=== PATIENT | female | born 1975 | race Two or more races ===

== ENCOUNTER 2020-08-14 10:51 | Outpatient (REF) | payer OTHER, SELFPAY ==
--- NOTE | ~2020-08-14 | MM_ITS ---
EXAMINATION: MM SCREENING DIGITAL BREAST TOMOSYNTHESIS, BILATERAL CLINICAL INFORMATION: Screening. Asymptomatic. The lifetime risk of breast cancer based on the Tyrer-Cuzick Model is 12%. COMPARISON: Outside mammography: 01/21/2019, 01/16/2019 ([place]). TECHNIQUE: Digital breast tomosynthesis is performed in both the craniocaudal and mediolateral oblique views along with computer-aided detection (CAD). Synthesized 2D images are generated from the tomosynthesis. FINDINGS: The breasts are heterogeneously dense, which may obscure small masses (ACR BI-RADS breast composition Category c). There are no significant masses, abnormal calcifications, or other abnormalities. Parenchymal pattern is similar to prior studies. No developing density. The axilla and skin contours are unremarkable. MM/MM tomosynthesis screening BI IMPRESSION: No mammographic evidence of malignancy. ASSESSMENT: BI-RADS 1: Negative RECOMMENDATION: Routine annual mammography screening. This patient's information was entered into a reminder system with a target due date for their next mammogram.
== END 2020-08-14 10:52 | disposition home or self-care (01) ==
LOC: HO.MAMMO 10:51
PROVIDERS: Visit Provider Internal Medicine
DX: Z12.31 Encounter for screening mammogram for malignant neoplasm of breast (principal)
CPT/HCPCS: 77063; 77067

== ENCOUNTER 2020-10-06 07:26 | Outpatient (REF) | payer OTHER, SELFPAY ==
--- NOTE | ~2020-10-06 | MR_ITS ---
EXAMINATION: MR BRAIN WITHOUT AND WITH CONTRAST CLINICAL INFORMATION: Hyperprolactinemia. COMPARISON: There are no prior studies available for comparison. TECHNIQUE: Multiplanar, multisequence MRI of the brain was obtained before and after the intravenous administration of 3.5 mL Gadavist. FINDINGS: No discrete abnormal focus of decreased differential enhancement is seen within the pituitary gland. The infundibulum is midline. The cavernous sinuses opacify symmetrically. The internal carotid artery flow-voids are maintained. The optic chiasm is normal. No suprasellar soft tissue abnormality is seen. The sella turcica is normal. No diffusion abnormalities are identified to suggest an acute or subacute infarct. No mass effect or midline shift is seen. The ventricles are normal in size. Brain parenchymal signal is normal. No extra-axial fluid collections are seen. The brainstem and cerebellum are normal. On postcontrast imaging, there is no abnormal parenchymal or leptomeningeal enhancement. No pathologic magnetic susceptibility artifact is identified on the gradient refocused acquisition. The craniovertebral junction, marrow signal, and midline structures are normal. The major intracranial flow-voids at the level of the cahto of [place] are preserved. The dural venous sinus flow-voids are maintained. The mastoid air cells are well-aerated. There is trace mucoperiosteal thickening in the inferior left maxillary sinus. MR/MR head/brain wo/w con IMPRESSION: 1. The pituitary region appears normal, and no discrete abnormal foci of decreased differential enhancement are demonstrated. 2. There are no acute bleeds or infarcts. There are no masses or areas of abnormal enhancement.
== END 2020-10-06 07:27 | disposition home or self-care (01) ==
LOC: HO.MRI 07:26
PROVIDERS: PCP Internal Medicine; Visit Provider Obstetrics & Gynecology Reproductive Endocrinology
DX: E22.1 Hyperprolactinemia (principal)
CPT/HCPCS: 70553; A9585

== ENCOUNTER 2020-12-08 14:12 | Outpatient (REF) | payer OTHER, SELFPAY ==
--- NOTE | ~2020-12-08 | XR_ITS ---
EXAMINATION: XR SHOULDER, RIGHT CLINICAL INFORMATION: Right shoulder pain. COMPARISON: None TECHNIQUE: AP external rotation, Grashey, scapular Y, and axillary views of the right shoulder. FINDINGS: No acute fracture or dislocation. No joint space narrowing or marginal osteophytes. No osseous erosion. Calcification adjacent to the greater tuberosity measuring 0.6 cm, consistent with distal supraspinatus calcific tendinitis. XR/XR shoulder RT min 2V IMPRESSION: Distal supraspinatus calcific tendinitis.
== END 2020-12-08 14:13 | disposition home or self-care (01) ==
LOC: HO.XRAY 14:12
PROVIDERS: PCP Internal Medicine; Visit Provider Internal Medicine
DX: M25.511 Pain in right shoulder (principal)
CPT/HCPCS: 73030

== ENCOUNTER 2020-12-12 09:14 | Outpatient (REF) | payer OTHER, SELFPAY ==
[2020-12-12 09:39] LABS: MANUAL DIFF FLAG NO
[2020-12-12 09:42] LABS: Basophils Percent Auto 0.8 % (0-2); Eosinophils Absolute Auto 0.3 X10*3/uL (0.0-0.4); Eosinophils Percent Auto 5.1 % (0-4); Hematocrit 41.2 % (37-47); Hemoglobin 13.7 g/dl (12.0-16.0); Imm Gran Abs Auto 0.01 X10*3/uL (0.00-0.03); Imm Gran Pct Auto 0.2 % (0.0-0.4); Lymphocytes Absolute Auto 1.3 X10*3/uL (1.2-4.9); Lymphocytes Percent Auto 25.9 % (20-40); Mean Corpuscular HGB Conc 33.3 g/dl (31.0-35.0); Mean Corpuscular Hemoglobin 31.4 pg (27.0-33.0); Mean Corpuscular Volume 94.5 fL (80-98); Mean Platelet Volume 9.6 fL (9.4-12.3); Monocytes Absolute Auto 0.4 X10*3/uL (0.1-1.2); Monocytes Percent Auto 6.8 % (2-11); Neutrophils Absolute Auto 3.1 X10*3/uL (2.0-8.3); Neutrophils Percent Auto 61.2 % (45-73); Platelet Count 311 X10*3/uL (160-400); Red Blood Count 4.36 X10*6/uL (4.20-5.50); Red Cell Distribution Width 12.3 % (11.0-16.0); White Blood Count 5.1 X10*3/uL (4.8-10.8)
[2020-12-12 10:15] LABS: Alanine Aminotransferase 9 U/L (0-31); Albumin Level 4.3 g/dL (3.5-5.0); Alkaline Phosphatase 87 U/L (39-117); Anion Gap 10 (12-20); Aspartate Amino Transferase 12 U/L (5-31); Bilirubin Total 0.7 mg/dL (0.0-1.0); Blood Urea Nitrogen 9 mg/dL (9-16); Calcium 9.3 mg/dL (8.4-10.2); Carbon Dioxide 29 mmol/L (22-29); Chloride 104 mmol/L (96-108); Cholesterol 180 mg/dL; Estimated Glomerular Filt Rate > 60; Glucose Fasting 95 mg/dL (60-99); HDL Cholesterol 52 mg/dL; LDL Cholesterol Calculated 121 mg/dl; Potassium 3.8 mmol/L (3.3-5.1); Sodium 139 mmol/L (135-145); Total Protein 7.6 g/dL (6.5-8.0); Triglycerides 37 mg/dL
[2020-12-17 12:41] LABS: Vitamin D 25-OH, D2 <4 ng/mL; Vitamin D 25-OH, D3 44 ng/mL; Vitamin D 25-OH, Total 44 ng/mL (30-100)
== END 2020-12-12 09:15 | disposition home or self-care (01) ==
LOC: HO.LAB 09:14
PROVIDERS: PCP Internal Medicine; Visit Provider Internal Medicine
DX: D64.9 Anemia, unspecified (principal); J45.909 Unspecified asthma, uncomplicated; E78.5 Hyperlipidemia, unspecified; E55.9 Vitamin D deficiency, unspecified
CPT/HCPCS: 36415; 80053; 80061; 82306; 85025

== ENCOUNTER 2021-02-02 07:00 | Outpatient (RCR) | payer OTHER, SELFPAY ==
--- NOTE | 2020-12-30 10:34 | MHC.PT.EP ---
[facility] [place] Office [place] Office [place] Office [address] Marquez Ayala [address] [phone] F: [phone] F: [phone] F: [phone] F: [phone] Physical Therapy Plan of Care Date of Evaluation: Date of Surgery: none Diagnosis: right shoulder pain Assessment: The patient arrived reporting neck and shoulder pain, decreased ROM, and decreased strength. Her current work requires increased computer time and increased sitting. Pt exhibits rounded forward head posture during demonstration of work space. Pt will benefit from posture education, sleeping and sitting posture, cervical Apryl exercises and symptom management. She is a good candidate for skilled PT. Frequency and Duration: The patient will be seen 2x/week x 4 weeks. Short Term Goals: 1.Pt to able to demonstrate proper sitting posture with the use of a lumbar roll to decrease aggravating factors. 2.Pt to be able to demonstrate proper posture for common leisure activities such as phone/tablet use. 3.For the patient to demonstrate proper upright sitting posture with use of the lumbar roll to improve compliance and carryover. Sweatband Flanger Goals: 1. Pt to be able to return to normal PLOF without limiting pain. 2. Pt to be able to return to overhead reaching without pain or limitation. 3. Pt to be able to manage her pain with selected exercise and stretching regime. Treatment Plan: Modalities to reduce pain, spasms and effusion. Manual therapy to restore motion and function. Therapeutic exercise to improve strength and flexibility. Neuromuscular re-education for posture and balance. Therapeutic activities to return to functional activities of daily living. Electronically signed by: Mariajose Canela PT DPT Please sign and return to therapist. Thank you for your referral.
== END 2021-02-02 14:24 | disposition home or self-care (01) ==
LOC: HO.PT 07:00
PROVIDERS: PCP Internal Medicine; Visit Provider Internal Medicine
DX: M25.511 Pain in right shoulder (principal)
CPT/HCPCS: 97110; 97112; 97161; 97530

== ENCOUNTER 2022-08-19 09:42 | Outpatient (REF) | payer OTHER, SELFPAY ==
--- NOTE | ~2022-08-19 | MM_ITS ---
EXAMINATION: MM SCREENING DIGITAL BREAST TOMOSYNTHESIS, BILATERAL CLINICAL INFORMATION: Screening. Asymptomatic. The lifetime risk of breast cancer based on the Tyrer-Cuzick Model is 14%. COMPARISON: Mammography: 08/14/2020; outside mammography 01/21/2019, 01/16/2019 ([place]); left breast ultrasound 01/21/2019 ([place]). TECHNIQUE: Digital breast tomosynthesis is performed in both the craniocaudal and mediolateral oblique views along with computer-aided detection (CAD). Synthesized 2D images are generated from the tomosynthesis. FINDINGS: The breasts are heterogeneously dense, which may obscure small masses (ACR BI-RADS breast composition Category c). Parenchymal pattern is similar to prior studies and there is no developing density or architectural abnormality. There are no significant masses, abnormal calcifications, or other abnormalities. The axilla and skin contours are unremarkable. No significant changes from prior exams. MM/MM tomosynthesis screening BI IMPRESSION: No mammographic evidence of malignancy. ASSESSMENT: BI-RADS 1: Negative RECOMMENDATION: Routine annual mammography screening. This patient's information was entered into a reminder system with a target due date for their next mammogram.
== END 2022-08-19 09:43 | disposition home or self-care (01) ==
LOC: HO.MAMMO 09:42
PROVIDERS: PCP Internal Medicine; Visit Provider Internal Medicine
DX: Z12.31 Encounter for screening mammogram for malignant neoplasm of breast (principal)
CPT/HCPCS: 77063; 77067

== ENCOUNTER → 2022-10-31 11:08 | Outpatient (BNVA) | payer OTHER, SELFPAY | PROVIDERS: PCP Internal Medicine; Visit Provider Internal Medicine ==

== ENCOUNTER 2022-11-17 08:41 | Outpatient (REF) | payer OTHER, SELFPAY ==
[2022-11-17 10:28] LABS: Alanine Aminotransferase 8 U/L (0-31); Albumin Level 4.2 g/dL (3.5-5.0); Alkaline Phosphatase 84 U/L (39-117); Anion Gap 11 (12-20); Aspartate Amino Transferase 14 U/L (5-31); Bilirubin Direct 0.2 mg/dL (0.0-0.5); Bilirubin Total 0.7 mg/dL (0.0-1.0); Blood Urea Nitrogen 12 mg/dL (9-16); Calcium 9.2 mg/dL (8.4-10.2); Carbon Dioxide 28 mmol/L (22-29); Chloride 105 mmol/L (96-108); Cholesterol 200 mg/dL (<200); Estimated Glomerular Filt Rate > 60; Glucose Fasting 90 mg/dL (60-99); HDL Cholesterol 56 mg/dL (>40); LDL Cholesterol Calculated 134 mg/dL (<100); Potassium 3.5 mmol/L (3.3-5.1); Sodium 140 mmol/L (135-145); Total Protein 7.5 g/dL (6.5-8.0); Triglycerides 52 mg/dL (<150)
[2022-11-17 10:51] LABS: Vitamin D 25-OH Total 38.7 ng/mL (>30)
[2022-11-17 10:54] LABS: TSH reflex Free T4 2.06 uIU/mL (0.32-4.0)
[2022-11-22 13:48] LABS: Immunoglobulin A 242 mg/dL (47-310)
[2022-11-24 14:08] LABS: Transglutaminase IgA <1.0 U/mL
== END 2022-11-17 08:42 | disposition home or self-care (01) ==
LOC: HO.LAB 08:41
PROVIDERS: Internal Medicine; PCP Internal Medicine; Visit Provider Internal Medicine
DX: Z00.00 Encounter for general adult medical examination without abnormal findings (principal); R10.9 Unspecified abdominal pain; E55.9 Vitamin D deficiency, unspecified; E78.5 Hyperlipidemia, unspecified
CPT/HCPCS: 36415; 80053; 80061; 80076; 82248; 82306; 82784; 84443; 86364

== ENCOUNTER 2022-11-17 08:57 | Outpatient (REF) | payer OTHER, SELFPAY ==
--- NOTE | ~2022-11-17 | US_ITS ---
EXAMINATION: US ABDOMEN COMPLETE CLINICAL INFORMATION: Unspecified abdominal pain. COMPARISON: None available. TECHNIQUE: Real-time imaging of the abdominal viscera. FINDINGS: PANCREAS: Normal. ABDOMINAL AORTA: The proximal, mid, and distal segments are normal in caliber. INFERIOR VENA CAVA: Visualized portions are normal. LIVER: The liver is normal in size. The liver contour is normal. Parenchymal echogenicity is normal. Circumscribed echogenic lesion right lower lobe at 13 mm has the appearance of a hemangioma. This can be confirmed with gadolinium-enhanced MRI. There is no intrahepatic biliary duct dilatation seen. GALLBLADDER: Normal. The gallbladder is physiologically distended without evidence of stones, sludge, polyps, wall thickening or pericholecystic fluid. COMMON BILE DUCT: Normal in caliber measuring 0.3 cm in diameter. RIGHT KIDNEY: Normal. No hydronephrosis. No renal calculi or focal parenchymal lesions. The kidney measures 11.2 cm in maximum dimension. LEFT KIDNEY: No hydronephrosis. No renal calculi or focal parenchymal lesions. The kidney measures 11.0 cm in maximum dimension. SPLEEN: Normal. The spleen measures 9.2 cm in maximum dimension. FREE FLUID: None. US/US abdomen complete IMPRESSION: No gallstones or biliary dilatation. Likely hepatic hemangioma. Gadolinium enhanced MRI would be confirmatory.
== END 2022-11-17 08:58 | disposition home or self-care (01) ==
LOC: HO.US 08:57
PROVIDERS: Visit Provider Internal Medicine
DX: R10.9 Unspecified abdominal pain (principal)
CPT/HCPCS: 76700

== ENCOUNTER 2022-11-26 11:35 | Outpatient (REF) | payer OTHER, SELFPAY ==
[2022-12-02 22:54] LABS: Calprotectin, Fecal 45 mcg/g
== END 2022-11-26 11:36 | disposition home or self-care (01) ==
LOC: HO.LNP 11:35
PROVIDERS: Visit Provider Internal Medicine
DX: R10.9 Unspecified abdominal pain (principal)
CPT/HCPCS: 83993

== ENCOUNTER 2022-12-23 09:42 | Outpatient (AMB) | payer OTHER, SELFPAY ==
[2022-12-23 10:24] VITALS: BP 92/68; BMI 25.0
--- NOTE | 2022-12-23 10:24 | MHC.OFFVIS ---
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 She had at least for [facility] but they did not take. She was told the because of her insurance IVF would not be covered. So she is given up and is not pursuing that anymore she is sexually active with a partner but not that often. She would like testing for STIs. She does not contraceptive because of the infertility. Her periods are normal and regular and the last 1 came on December 03. She does not exercise that much. She eats very healthy and she pays somebody to prepare healthy fresh [facility] meals that she picks up every week. 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 She has gained about 20 lb she says during the whole pandemic. She is up-to-date on her mammograms. She is undergoing evaluation for GI issues and is finding that probiotics and Metamucil are helping with constipation and she is awaiting an endoscopy for some other issues. [facility] Medical History Encounter for physical examination Pure hypercholesterolemia Right shoulder pain Constipation by delayed colonic transit Infertility Asthma Surgical History Hx of colonoscopy History of esophagogastroduodenoscopy (EGD) H/O cervical polypectomy Hx of tonsillectomy Family History (Updated 12/23/22 @ 10:34 by ULISSES Naranjo) Father Diabetes Mother Hypertension Family/Other Breast cancer Social History (Updated 12/23/22 @ 10:35 by ULISSES Naranjo) Housing: House Alcohol intake: current Alcohol intake frequency: holidays/special occasions only Patient Tobacco Use Status: Never used Tobacco e-Cigarette/Vaping Use: Never Used Second Hand Smoke Exposure: No service: No Current occupational status: employed Current occupational exposures/hazards: No Cognitive needs: No Hearing needs: No Vision needs: No Female Reproductive History Menstrual Age of Menarche: 15 Duration of menses: 3-5 days Date of last menstrual period: 12/03/22 control method: none Total pregnancies: 0 History of abnormal pap smear: Yes Date of Mammogram: 08/19/22 Physical Exam Vital Signs: Last Vital Signs BP 92/68 12/23/22 10:24 BMI result Body Mass Index 25.0 Const General: healthy appearing, comfortable, no acute distress, well developed and alert Nutritional Appearance: average body habitus Orientation/consciousness: patient oriented x3 Limitations: no limitations HEENT Head: Yes normocephalic Neck Neck: Yes normal visual inspection Chest Chest palpation & inspection: normal inspection of the chest Breast/axilla inspection: normal inspection of the breasts and normal inspection of the axillae Breast/axilla palpation: normal palpation of the breasts and normal palpation of the axillae Resp Effort & Inspection: normal respiratory effort GI Inspection: Yes normal to inspection, No Abdominal wall edema and No distended Palpation (GI): Soft to palpation and nontender Other: External exam within normal limits vagina pink and moist cervix pink nulliparous. Uterus small slightly retroverted mobile nontender adnexa nontender not enlarged very good tone with Kegel. General: Yes bladder normal to palpation External Female Exam: normal external appearance and normal appearance of the urethra Speculum Exam - Vagina: normal appearance of the vagina, normal palpation and normal vaginal discharge Speculum Exam - Cervix: normal appearance of the cervix, normal palpation and nontender Bimanual exam- vagina & uterus: normal bimanual exam, normal palpation, uterine size normal, bladder normal to palpation, consistency normal, normal palpation, uterine mobility normal, uterine shape normal, No Cervical tenderness present, non-tender and no cervical motion tenderness Bimanual Exam- Adnexa, other: normal adnexae, no masses, normal and No adnexal tenderness Neuro General: patient oriented x3 Assessment & Plan Assessment & Plan (1) Screening for cervical cancer: Comment: History of abnormal Paps times at least 2 with colposcopy about 10 years ago in [facility] since. 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 She had at least for IUIs, but they did not take. She was told that because of her insurance, IVF would not be covered. So she has given up and is not pursuing that anymore she is sexually active with a partner but not that often. She would like testing for STIs. She does not contraceptive because of the infertility. Her periods are normal and regular and the last 1 came on December 03. She does not exercise that much. She eats very healthy and she pays somebody to prepare healthy fresh [facility] meals that she picks up every week. 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 She has gained about 20 lb she says during the whole pandemic. She is up-to-date on her mammograms. She is undergoing evaluation for GI issues and is finding that probiotics and Metamucil are helping with constipation and she is awaiting an endoscopy for some other issues. Pap smear was done testing for gonorrhea chlamydia trichomoniasis Gardnerella and Kala was done and orders placed for HIV hep B hep C and syphilis. We will await the Pap smear results I discussed the new were interim testing but because of her history of abnormals she may wean on to get follow-up slightly more frequently than if she had had no abnormals we will await the results to see. She is on the portal but she may call if she gets anxious. Orders: Orders Bacterial Vaginosis Panel Today Z20.2 - Contact with and (suspected) exposure to infections with a predominantly sexual mode of transmission CT NG by PCR Today Z20.2 - Contact with and (suspected) exposure to infections with a predominantly sexual mode of transmission Pap Smear Today Z12.4 - Encounter for screening for malignant neoplasm of cervix Hepatitis B Surface Antigen Today Z01.419 - Encounter for gynecological examination (general) (routine) without abnormal findings, Z11.3 - Encounter for screening for infections with a predominantly sexual mode of transmission, Z12.39 - Encounter for other screening for malignant neoplasm of breast, Z12.4 - Encounter for screening for malignant neoplasm of cervix HIV Ab/Ag Today Z01.419 - Encounter for gynecological examination (general) (routine) without abnormal findings, Z11.3 - Encounter for screening for infections with a predominantly sexual mode of transmission, Z12.39 - Encounter for other screening for malignant neoplasm of breast, Z12.4 - Encounter for screening for malignant neoplasm of cervix Hepatitis C Antibody Today Z01.419 - Encounter for gynecological examination (general) (routine) without abnormal findings, Z11.3 - Encounter for screening for infections with a predominantly sexual mode of transmission, Z12.39 - Encounter for other screening for malignant neoplasm of breast, Z12.4 - Encounter for screening for malignant neoplasm of cervix Syphilis Screen Today Z01.419 - Encounter for gynecological examination (general) (routine) without abnormal findings, Z11.3 - Encounter for screening for infections with a predominantly sexual mode of transmission, Z12.39 - Encounter for other screening for malignant neoplasm of breast, Z12.4 - Encounter for screening for malignant neoplasm of cervix Coding Level of Care Code New Pt Prev Care 40-64y(19046) Diagnoses Screening for cervical cancer Z12.4 Screen for sexually transmitted diseases Z11.3 Breast cancer screening Z12.39 Well woman exam with routine gynecological exam Z01.419
== END 2022-12-23 11:12 | disposition home or self-care (01) ==
PROVIDERS: PCP Internal Medicine; Visit Provider Advanced Practice Midwife
DX: Z01.419 Encounter for gynecological examination (general) (routine) without abnormal findings (principal)
CPT/HCPCS: 99386

== ENCOUNTER 2022-12-23 09:42 | Outpatient (REF) | payer OTHER, SELFPAY ==
[2022-12-30 01:58] LABS: HPV 16 RNA NOT DETECTED (NOT DETECTED); HPV mRNA E6/E7 rflx Detected (Not Detected)
== END 2022-12-23 09:43 | disposition home or self-care (01) ==
LOC: HO.LNP 09:42
PROVIDERS: PCP Internal Medicine; Visit Provider Advanced Practice Midwife
DX: Z01.419 Encounter for gynecological examination (general) (routine) without abnormal findings (principal); Z11.51 Encounter for screening for human papillomavirus (HPV); Z20.2 Contact with and (suspected) exposure to infections with a predominantly sexual mode of transmission
CPT/HCPCS: 87480; 87510; 87624; 87625; 87660; 88142

== ENCOUNTER 2022-12-23 11:18 | Outpatient (REF) | payer OTHER, SELFPAY | END 2022-12-23 11:19 | disposition home or self-care (01) | LOC: HO.LAB 11:18 | PROVIDERS: PCP Internal Medicine; Visit Provider Advanced Practice Midwife | DX: Z11.4 Encounter for screening for human immunodeficiency virus [HIV] (principal); Z20.2 Contact with and (suspected) exposure to infections with a predominantly sexual mode of transmission | CPT/HCPCS: 0353U; 86780; 86803; 87340; 87389 ==

== ENCOUNTER 2023-02-23 15:31 | Outpatient (REF) | payer OTHER, SELFPAY | END 2023-02-23 15:32 | disposition home or self-care (01) | LOC: HO.LNP 15:31 | PROVIDERS: PCP Internal Medicine; Visit Provider Obstetrics & Gynecology | DX: Z32.02 Encounter for pregnancy test, result negative (principal); R87.612 Low grade squamous intraepithelial lesion on cytologic smear of cervix (LGSIL) | CPT/HCPCS: 57454; 81025; 88305 ==

== ENCOUNTER 2023-02-23 15:31 | Outpatient (AMB) | payer OTHER, SELFPAY ==
--- NOTE | 2023-02-23 15:34 | A.OFFVIS_ITS ---
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 Required: No Information Interpreted: non-clinical & clinical Educational Resource Center Teacher: Educational Resource Center Teacher Present (Juliana) Allergies No Known Allergies Allergy (Verified 02/23/23 15:44) Is last menstrual period known: No Post menopausal: No Patient : No HPI HPI Comments History of Present Illness Details Presenting referred from Taylor Joshi CNM regarding abnormal Pap smear showing LSIL HPV positive [facility] Medical History Encounter for physical examination Pure hypercholesterolemia Right shoulder pain Constipation by delayed colonic transit Infertility Asthma Surgical History Hx of colonoscopy History of esophagogastroduodenoscopy (EGD) H/O cervical polypectomy Hx of tonsillectomy Family History Father Diabetes Mother Hypertension Family/Other Breast cancer Social History Housing: House Alcohol intake: current Alcohol intake frequency: holidays/special occasions only Patient Tobacco Use Status: Never used Tobacco e-Cigarette/Vaping Use: Never Used Second Hand Smoke Exposure: No Patient : No service: No Current occupational status: employed Current occupational exposures/hazards: No Cognitive needs: No Hearing needs: No Vision needs: No Female Reproductive History Menstrual Age of Menarche: 15 control method: none Date of last pap smear: 12/27/22 (PATTIE 1 +HPV) History of abnormal pap smear: Yes Review of Systems Const All systems reviewed & are unremarkable except as noted in HPI and below Physical Exam Vital Signs: Last Vital Signs BP 110/76 02/23/23 15:44 BMI result Body Mass Index 24.4 General: Yes no CVA tenderness External Female Exam: normal external appearance and normal appearance of the urethra Speculum Exam - Vagina: normal appearance of the vagina, normal palpation, no lesions and no masses Speculum Exam - Cervix: normal appearance of the cervix, normal palpation, no lesions, no masses and nontender Bimanual exam- vagina & uterus: normal bimanual exam, normal palpation, uterine size normal, normal palpation, uterine shape normal, No Cervical tenderness present and non-tender Bimanual Exam- Adnexa, other: normal adnexae Back/Spine/Pelvis Back: no CVA tenderness Office Procedures Colposcopy Before the procedure was started discussed with the patient the procedure, alternatives & all the risks associated with the procedure (bleeding, infection, injury to vagina, bladder, vessels, possible need for transfusion with all its risks) then patient signed the consent Pap smear = LSIL/HPV pause Urine test done in the office was negative Speculum inserted, acetic acid used Colposcopy done Transformation zone seen, acetowhite lesions identified at 6+7+10+12+1+3 o?clock, cervical biopsies taken from 6+7+10+12+1+3 o?clock, ECC done afterwards. Vaginoscopy of the upper vagina showed no evidence of any aceto-white lesions Monsel solution used for hemostasis. The patient tolerated well . At the end the patient was instructed to call if temp>100.4, abdominal pain, n/v, bleeding; The patient was given the following instructions: nothing per vagina, no intercourse or bath tub use. All questions answered the patient verbalized understanding. Instructed the patient to make an appointment in 2 weeks for follow-up This note was generated with a voice recognition program. Some errors may have been overlooked during the review of this note. Sometimes these errors may affect the content or meaning of a given sentence. [id number] of cervix including upper vagina with biopsy and ECC Procedure code (CPT) selection complete Results AMB Test Urine AMB Test Urine Negative Last Edit by ULISSES Naranjo on 02/23/23 15:46 Results Reviewed Results Reviewed: Laboratory Last Values [facility]st Clinic Negative 02/23/23 15:45 Assessment & Plan Assessment & Plan (1) LGSIL on Pap smear of cervix: Comment: HPV E6/E7 positive, HPV 16/18/45 negative Code(s): R87.612 - Low grade squamous intraepithelial lesion on cytologic smear of cervix (LGSIL) Plan: Discussed with the patient the result of her abnormal pap, its significance, risk of progression, persistence, and regression if untreated. the false positive/negative rate being a screening test, the indicate for diagnostic test -colposcopy, biopsy, endocervical curettage. Colposcopy done, see procedure note. The patient verbalized understanding and agreed with the plan, all questions answered. Orders: Orders AMB Colposcopy Today R87.612 - Low grade squamous intraepithelial lesion on cytologic smear of cervix (LGSIL) AMB HCG Urine Test Today Z32.02 - Encounter for test, result negative Coding Level of Care Code Procedure Only Diagnoses LGSIL on Pap smear of cervix R87.612 CPT Codes Colposcopy - CPT: 26411-Sgztplctt of cervix including upper vagina with biopsy and ECC ([id number])
[2023-02-23 15:44] VITALS: BP 110/76; BMI 24.4
== END 2023-02-23 16:09 | disposition home or self-care (01) ==
PROVIDERS: PCP Internal Medicine; Visit Provider Obstetrics & Gynecology
DX: R87.612 Low grade squamous intraepithelial lesion on cytologic smear of cervix (LGSIL) (principal); Z32.02 Encounter for pregnancy test, result negative
CPT/HCPCS: 57454

== ENCOUNTER 2023-05-17 07:48 | Outpatient (REF) | payer OTHER, SELFPAY ==
--- NOTE | ~2023-05-17 | MR_ITS ---
EXAMINATION: MR ABDOMEN WITHOUT AND WITH CONTRAST CLINICAL INFORMATION: History of abdominal pain and liver lesion. COMPARISON: Abdomen ultrasound from 11/17/2022. TECHNIQUE: MR abdomen was performed on a high-field magnet without and with use of 7.5 mL intravenous Gadavist contrast. Postcontrast images are performed in multiphase dynamic sequences. Imaging was performed in 3 planes. FINDINGS: LUNG BASES: Normal. No pulmonary consolidation or pleural effusion. LIVER: Liver has normal size and contour. No evidence of steatosis or cirrhosis. A slightly lobulated 1.1 cm T2 hyperintense lesion in the lateral right lobe near region of junction of segments 7 and 8 has a centripetal pattern of contrast opacification consistent with diagnosis of cavernous hemangioma. Further inferiorly in the right lobe, there is a 0.7 cm focus of arterial phase hyperenhancement that remains hyperenhancing in the early portal venous phase but is becoming more isointense on the equilibrium phase. There is no well-defined lesion in this location on the precontrast images. This could represent an atypical hemangioma or focal nodular hyperplasia. GALLBLADDER AND BILIARY TREE: The gallbladder is physiologically distended and has normal wall thickness. No evidence of cholelithiasis. No dilated bile ducts. PANCREAS: No edema, pancreatic ductal dilatation or mass. SPLEEN: Normal. ADRENAL GLANDS: Normal. KIDNEYS: Kidneys are normal in size. No solid renal mass, hydronephrosis or perinephric edema. There is 0.3 cm cortical cyst of the medial upper pole of the left kidney. No renal imaging follow-up recommended. BOWEL AND PERITONEUM: Stomach is unremarkable. No dilated loops of bowel. No bowel wall thickening or mesenteric fat stranding. No abdominal free fluid. VASCULATURE: Normal. LYMPH NODES: No pathologic sized lymph nodes in the abdomen. SKELETAL: No suspicious osseous lesions. There are type 2 Modic signal changes at T11 vertebral body endplates and at L4-L5. Also, there appears to be a posterior annular fissure at L4-L5. MR/MR abdomen wo/w con IMPRESSION: * 1.1 cm cavernous hemangioma in the right lobe of the liver. * Also, there is a 0.7 cm focus of contrast hyperenhancement in the inferior right hepatic lobe without any well-defined lesion in this location on the noncontrast images. This is an indeterminate but very likely benign and could represent an atypical hemangioma or focal nodular hyperplasia.
[2023-05-17] MEDS: gadobutroL 7.5 ML VIAL IVPUSH (08:43)
== END 2023-05-17 07:49 | disposition home or self-care (01) ==
LOC: HO.MRI 07:48
PROVIDERS: PCP Internal Medicine; Visit Provider Internal Medicine
DX: K76.9 Liver disease, unspecified (principal)
CPT/HCPCS: 74183; A9585

== ENCOUNTER 2023-05-18 07:23 | Outpatient (AMB) | payer OTHER, SELFPAY ==
[2023-05-18 07:39] VITALS: BP 102/60; BMI 24.2
--- NOTE | 2023-05-18 07:39 | A.OFFVIS_ITS ---
Intake Vital Signs 05/18/23 07:39 Height 5 ft 6 in Weight 149 lb 14.629 oz BMI 24.2 BP 102/60 Intake Visit Reasons: Colpo Result Review Assistant Required: No Information Interpreted: non-clinical & clinical Accompanied by: Self / Same As Patient Allergies No Known Allergies Allergy (Verified 05/18/23 07:40) Is last menstrual period known: Yes Last menstrual period: 05/17/23 HPI HPI Comments History of Present Illness Details Presenting post colpo for follow-up. The patient is doing well with no complaints. The pathology showed the following: A. Endocervix, curettage: Scant superficial strips of endocervical and squamous epithelium within normal limits. B. Cervix, 1 o'clock, biopsy: Squamous mucosa and strip of endocervical epithelium within normal limits. C. Cervix, 3 o'clock, biopsy: Small fragment of cervical transformation zone mucosa and strips of endocervical epithelium within normal limits. D. Cervix, 6 o'clock, biopsy: - Low-grade squamous intraepithelial les ion (PATTIE 1). - Background mildly inflamed cervical tr ansformation zone mucosa; otherwise within normal limits. E. Cervix, 7 o'clock, biopsy: Mildly inflamed cervical transformation zone mucosa; otherwise within normal limits. F. Cervix, 10 o'clock, biopsy: Mildly inflamed cervical transformation zone mucosa; otherwise within normal limits. G. Cervix, 12 o'clock, biopsy: Inflamed cervical transformation zone mucosa with reactive changes PFSH Medical History Encounter for physical examination Pure hypercholesterolemia Right shoulder pain Constipation by delayed colonic transit Infertility Asthma Surgical History Hx of colonoscopy History of esophagogastroduodenoscopy (EGD) H/O cervical polypectomy Hx of tonsillectomy Family History Father Diabetes Mother Hypertension Family/Other Breast cancer Social History Housing: House Alcohol intake: current Alcohol intake frequency: holidays/special occasions only Patient Tobacco Use Status: Never used Tobacco e-Cigarette/Vaping Use: Never Used Second Hand Smoke Exposure: No service: No Current occupational status: employed Current occupational exposures/hazards: No Cognitive needs: No Hearing needs: No Vision needs: No Female Reproductive History Menstrual Age of Menarche: 15 Date of last menstrual period: 05/17/23 Review of Systems Const All systems reviewed & are unremarkable except as noted in HPI and below Reports as per HPI and Reports no additional complaints GI Reports no additional complaints Reports no additional complaints Physical Exam Vital Signs: Last Vital Signs BP 102/60 05/18/23 07:39 BMI result Body Mass Index 24.2 Assessment & Plan Assessment & Plan (1) Dysplasia of cervix, low grade (PATTIE 1): Code(s): N87.0 - Mild cervical dysplasia Plan: Discussed with the patient the pathology results of the colposcopy biopsies & endocervical curettage ( mild dysplasia-PATTIE 1). Discussed with the patient the sensitivity specificity, positive and negative predictive value in detecting cervical cancer in addition discussed the regression, persistence and progression rates. Recommended co-testing in 12 months, if cytology and or HPV are abnormal will proceed was colposcopy biopsy and endocervical curettage, if lesions gets worse or stays persistent for 2 years will proceed with loop electric excision procedure. Instructions given to the patient to schedule a co test appointment in 1 year. All questions answered the patient verbalized understanding. Coding Level of Care Code Est Pt Level 3 (27757) Diagnoses Dysplasia of cervix, low grade (PATTIE 1) N87.0
== END 2023-05-18 08:06 | disposition home or self-care (01) ==
LOC: HO.HWS 07:23
PROVIDERS: PCP Internal Medicine; Visit Provider Obstetrics & Gynecology
DX: N87.0 Mild cervical dysplasia (principal)
CPT/HCPCS: 99213

== ENCOUNTER → 2023-05-18 07:23 | Outpatient (BNVA) | payer OTHER, SELFPAY | PROVIDERS: PCP Internal Medicine; Visit Provider Obstetrics & Gynecology ==

== ENCOUNTER 2023-06-01 08:27 | Day surgery (SDC) | payer OTHER, SELFPAY ==
[2023-05-30 13:58] VITALS: BMI 24.9
--- NOTE | 2023-06-01 08:58 | P.CONAN_ITS ---
HPI - Anesthesia Eval Consult details Narrative: for EGD PMFSH Active Problems Active Problems: All Active Problems (Updated 05/18/23 @ 07:55 by Miguel Haywood MD) Dysplasia of cervix, low grade (PATTIE 1) (Acute) Liver lesion (Acute) LGSIL on Pap smear of cervix (Acute) Screen for sexually transmitted diseases (Acute) Breast cancer screening (Acute) Well woman exam with routine gynecological exam (Acute) Abdominal pain (Acute) Diarrhea (Acute) Sinusitis (Acute) Screening for cervical cancer (Acute) Rash (Acute) Encounter for physical examination (Acute) Pure hypercholesterolemia (Acute) Right shoulder pain (Acute) Constipation by delayed colonic transit (Acute) Infertility (Acute) Asthma (Acute) Past Medical History Medical History Encounter for physical examination Pure hypercholesterolemia Right shoulder pain Constipation by delayed colonic transit Infertility Asthma Patient : No Family History Family History Father Diabetes Mother Hypertension Family/Other Breast cancer Family history of problems with anesthesia: No Surgical History Surgical History Hx of colonoscopy History of esophagogastroduodenoscopy (EGD) H/O cervical polypectomy Hx of tonsillectomy History of Problems with Anesthesia: No Social History Social History Housing: House Alcohol intake: current Alcohol intake frequency: holidays/special occasions only Patient Tobacco Use Status: Never used Tobacco e-Cigarette/Vaping Use: Never Used Second Hand Smoke Exposure: No Advance Directives: No Advance Directives Information Provided: Yes service: No Current occupational status: employed Current occupational exposures/hazards: No Cognitive needs: No Hearing needs: No Vision needs: No Meds Allergies Allergy/AdvReac Type Severity Reaction Status Date / Time No Known Allergies Allergy Verified 05/18/23 07:40 Active Medications: Current Medications Lactated Ringer's (Lr) 1,000 mls @ 80 mls/hr IVCONT .[id number] JOSEPH Home Medications Medication Instructions Recorded Confirmed Last Taken Type No Known Home Meds 12/23/22 12/23/22 Unknown History Exam Height,Weight and Vital Signs: Height 5 ft 6 in Weight 69.998 kg Airway Mallampati Class: I TM Dist: >3cm Neck ROM: Full Loose/Missing/Broken Teeth: No Heart: ok Lungs: ok Assessment and Plan Assessment Anesthesia Assessment: Anesthesia Plan Discussed and Chart Reviewed Final Anesthetic Review Family History of Problems with Anesthesia: No History of Problems with Anesthesia: No NPO: Yes ASA Class: II Final Preanesthetic Review: No Changes in Pt Med Stat, Meds/Allgs Chart Revie wed, Consent Obtained/Reviewed and Anes Risks/Benef Reviewed Patient Risk: Low Procedure Risk: Low Anesthetic Plan Anesthetic Plan: Agree w/ Assess. and Plan and TIVA Disposition: Standard PACU
[2023-06-01 09:23] VITALS: BMI 23.2
[2023-06-01 09:24] VITALS: BP 104/68; PULSE 77; RESP 14; TEMP 37.1; O2SAT 100
[2023-06-01 09:24] LABS: UPreg QC Valid YES; Urine Pregnancy NEGATIVE (NEGATIVE)
[2023-06-01] MEDS: Lactated Ringers 1,000 ML 80 ML IVCONT (09:38)
--- NOTE | 2023-06-01 11:22 | P.OP_ITS ---
Operative Note Operative Note Date of Service: 06/01/23 Narrative: Procedure: Esophagogastroduodenoscopy Endoscopist: Idalmis Nair MD Indication: Abd pain, vomiting Anesthesia Provider: Dr Miles Beckett Anesthesia Type: MAC ?? EGD Procedure:?? The procedure, indications, preparation and potential complications were revie wed with the patient, who indicated understanding and gave written informed consent to proceed. A physical exam was performed. The endoscope was introduced through the mouth, and advanced to the second part of duodenum. The mucosa was carefully examined on slow withdrawal of the endoscope. The patient tolerated the procedure well. There were no immediate complications.? ? EGD Findings:? * Esophagus:? Normal mucosa noted in the entire esophagus. The Z line was at 38 cm. Middle and lower esophagus forceps biopsies were obtained to rule out eosinophilic esophagitis. * Stomach:? Normal mucosa was noted in the stomach. Random gastric biopsies were taken to rule out H Pylori infection. Retroflexion was performed in the cardia. Pyloric channel was noted to be slightly stenosed but scope was able to traverse through. * Duodenum:? Mild erythema and edema of the duodenal bulb. Cold forceps biopsies were taken from duodenal bulb and second portion of the duodenum to rule out celiac sprue. Additional intervention: A TTS balloon dilator was passed through the scope and the pylorus was incrementally dilated from 12-15mm. There was significant resistance at 15 mm. On relook, there was superficial tears at 4'o clock and 7'o clock at the pylorus confirming successful dilation. ? EGD Impressions:? * Normal esophagus (biopsy) * Stenosed pyloric channel (dilation) * Duodenitis (biopsy) ?? Recommendations:?? * Follow biopsy results. Our office will call or send a letter with results within 7-10 days. * Start PPI therapy for mild peptic duodenitis * Avoid NSAIDs. Above has been reviewed with the patient.
[2023-06-01 11:34] VITALS: BP 101/62; PULSE 86; RESP 16; TEMP 36.3
[2023-06-01 11:49] VITALS: BP 101/62; PULSE 72; RESP 16; TEMP 36.3; O2SAT 100
== END 2023-06-01 12:31 | disposition home or self-care (01) ==
PROVIDERS: Anesthesiology; PCP Internal Medicine; Visit Provider Internal Medicine
PROC: 0DJ08ZZ Inspection of Upper Intestinal Tract, Via Natural or Artificial Opening Endoscopic (ICD-10-PCS; CPT 43235; principal; 2023-06-01 10:50)
DX: K29.50 Unspecified chronic gastritis without bleeding (principal); B96.81 Helicobacter pylori [H. pylori] as the cause of diseases classified elsewhere; K29.80 Duodenitis without bleeding; K31.1 Adult hypertrophic pyloric stenosis; K59.01 Slow transit constipation; J45.909 Unspecified asthma, uncomplicated; E78.00 Pure hypercholesterolemia, unspecified; Z98.890 Other specified postprocedural states
CPT/HCPCS: 43245; 43239; 81025; 88305; 88313; 88342; C1726; J2704

== ENCOUNTER → 2023-06-01 08:27 | Outpatient (BNV) | payer OTHER, SELFPAY | PROVIDERS: PCP Internal Medicine; Visit Provider Internal Medicine | DX: R10.9 Unspecified abdominal pain (principal); R11.10 Vomiting, unspecified; K29.80 Duodenitis without bleeding; K31.1 Adult hypertrophic pyloric stenosis | CPT/HCPCS: 43239; 43245 ==

== ENCOUNTER 2023-06-26 13:29 | Outpatient (AMB) | payer OTHER, SELFPAY ==
--- NOTE | 2023-06-26 13:32 | MHC.OFFVIS ---
Intake Vital Signs 06/26/23 13:34 Height 5 ft 6 in Weight 145 lb 8.081 oz BMI 23.5 BP 121/76 Blood Pressure Location Lt brachial Position Sitting Pulse 89 Intake Visit Reasons: s/p egd Intake Note: Rashid presents in the office as a follow up EGD. CC: She states that she just wants to know the results. Corporate Investigator Required: No Allergies No Known Allergies Allergy (Verified 06/26/23 13:34) HPI HPI Comments History of Present Illness Details 47 y.o F with longstanding GI issues since her late teens who is here for abd pain, N,V and diarrhea. Has central abdominal pain associated with nausea that occurs almost 2-3 times a month and lasts for a few hours. With the pain she also develops loose BMs which tends to improve the abdominal pain. Reports having endoscopy at 20y.o of age due to similar sx. And then again had a colonoscopy in 2020 which was reportedly normal (done at [facility]). Pt is worried as her friend recently from stomach ca. No fam hx of stomach or colon cancer. No changes in appetite. 06/01/23: Normal esophagus (biopsy) Stenosed pyloric channel (dilation) Duodenitis (biopsy) Path: A. Duodenum, biopsy: Duodenal mucosa within normal limits. B. Stomach, random, biopsy: - Antral-type and oxyntic mucosa with moderate chronic active inflammation. - Positive for H pylori. C. Esophagus, lower, biopsy: Squamous epithelium within normal limits; no inflammation seen. D. Esophagus, middle, biopsy: Squamous epithelium within normal limits; no inflammation seen. 06/26/23 Here for post-EGD follow up. Resolution of abd bloating and postprandial nausea since dilation. Reviewed H pylori + findings and pt interested in tx. Pt also brought report of most recent colo in 2020: Dr Harris ([facility]): NORMAL. [facility] Medical History Encounter for physical examination Pure hypercholesterolemia Right shoulder pain Constipation by delayed colonic transit Infertility Asthma Surgical History Hx of colonoscopy History of esophagogastroduodenoscopy (EGD) H/O cervical polypectomy Hx of tonsillectomy Family History Father Diabetes Mother Hypertension Family/Other Breast cancer Social History Housing: House Alcohol intake: current Alcohol intake frequency: holidays/special occasions only Patient Tobacco Use Status: Never used Tobacco e-Cigarette/Vaping Use: Never Used Second Hand Smoke Exposure: No service: No Current occupational status: employed Current occupational exposures/hazards: No Cognitive needs: No Hearing needs: No Vision needs: No Female Reproductive History Menstrual Age of Menarche: 15 Review of Systems Const All systems reviewed & are unremarkable except as noted in HPI and below Physical Exam Vital Signs: Last Vital Signs Pulse 89 06/26/23 13:34 BP 121/76 06/26/23 13:34 BMI result Body Mass Index 23.5 NAD Nonicteric Abd soft, nontender Assessment & Plan Assessment & Plan (1) Duodenitis: Code(s): K29.80 - Duodenitis without bleeding (2) Abdominal pain: Code(s): R10.9 - Unspecified abdominal pain (3) Helicobacter pylori (H. pylori): Code(s): A04.8 - Other specified bacterial intestinal infections (4) Encounter for colorectal cancer screening: Code(s): Z12.11 - Encounter for screening for malignant neoplasm of colon; Z12.12 - Encounter for screening for malignant neoplasm of rectum Plan Patient is interested in pursuing therapy for H pylori. States her mother also had some vague abdominal complaints and they went away after she was treated for H pylori. Quad therapy reviewed with the patient, and she was STRONGLY counseled to adhere to the instructed dosing and regimen. Patient requests paper scripts, as will be flying of for [place] later today. She will return for test of cure in August. Plan: -Omeprazole 20mg BID -Tetracycline 500mg 4 times a day (avoid sunburn while taking) -Metronidazole 250mg 4 times a day? (avoid all alcohol while taking, can take with food to avoid nausea) -Bismuth Subsalicylate 524mg 4 times a day (may turn stools black) -H pylori breath test to be done at least 2-3 weeks after the therapy is completed. -follow-up after breath test Normal colo in 2020. Repeat colonoscopy will be due in 2030 Medications: New metronidazole 250 mg PO QID 14 days 56 tabs 0RF omeprazole 20 mg PO BID 14 days 28 caps 0RF bismuth subsalicylate 2 tabs PO QID 14 days 112 tabs 0RF tetracycline 500 mg PO QID 14 days 56 caps 0RF Patient Instructions: 14 days of therapy (should not start any of these until has ALL 4 meds filled) : Omeprazole 20mg BID Tetracycline 500mg 4 times a day (avoid sunburn while taking) Metronidazole 250mg 4 times a day? (avoid all alcohol while taking, can take with food to avoid nausea) Bismuth Subsalicylate 524mg 4 times a day (may turn stools black) Coding Level of Care Code Est Pt Level 4 (53417) Diagnoses Duodenitis K29.80 Abdominal pain R10.9 Helicobacter pylori (H. pylori) A04.8 Encounter for colorectal cancer screening Z12.11; Z1212
[2023-06-26 13:34] VITALS: BP 121/76; PULSE 89; BMI 23.5
== END 2023-06-26 13:57 | disposition home or self-care (01) ==
PROVIDERS: PCP Internal Medicine; Visit Provider Internal Medicine
DX: K29.80 Duodenitis without bleeding (principal); R10.9 Unspecified abdominal pain; A04.8 Other specified bacterial intestinal infections; Z12.11 Encounter for screening for malignant neoplasm of colon; Z12.12 Encounter for screening for malignant neoplasm of rectum
CPT/HCPCS: 99214

== ENCOUNTER → 2023-06-26 13:29 | Outpatient (BNVA) | payer OTHER, SELFPAY | PROVIDERS: PCP Internal Medicine; Visit Provider Internal Medicine ==

== ENCOUNTER 2023-08-25 08:50 | Outpatient (REF) | payer OTHER, SELFPAY ==
[2023-08-31 15:09] LABS: H Pylori Breath Test Negative (Negative)
== END 2023-08-25 08:51 | disposition home or self-care (01) ==
LOC: HO.LNP 08:50
PROVIDERS: Visit Provider Internal Medicine
DX: A04.8 Other specified bacterial intestinal infections (principal)
CPT/HCPCS: 83013

== ENCOUNTER 2023-08-25 13:53 | Outpatient (AMB) | payer OTHER, SELFPAY ==
[2023-08-25 13:55] VITALS: BP 105/64; PULSE 81; BMI 24.2
--- NOTE | 2023-08-25 13:55 | MHC.OFFVIS ---
Vital Signs 08/25/23 13:55 Height 5 ft 6 in Weight 149 lb 14.629 oz BMI 24.2 BP 105/64 Blood Pressure Location Lt brachial Position Sitting Pulse 81 Intake Visit Reasons: follow up week august Intake Note: Rashid presents in the office as a follow up. CC: She had treatment H pylori and she did the treatment. She states after EGD she feels a lot better. Clinical Research Associate Required: No Allergies No Known Allergies Allergy (Verified 08/28/23 16:19) HPI Comments Details: 47 y.o F with longstanding GI issues since her late teens who is here for abd pain, N,V and diarrhea. Has central abdominal pain associated with nausea that occurs almost 2-3 times a month and lasts for a few hours. With the pain she also develops loose BMs which tends to improve the abdominal pain. Reports having endoscopy at 20y.o of age due to similar sx. And then again had a colonoscopy in 2020 which was reportedly normal (done at [facility]). Pt is worried as her friend recently from stomach ca. No fam hx of stomach or colon cancer. No changes in appetite. 06/01/23: Normal esophagus (biopsy) Stenosed pyloric channel (dilation) Duodenitis (biopsy) Path: A. Duodenum, biopsy: Duodenal mucosa within normal limits. B. Stomach, random, biopsy: - Antral-type and oxyntic mucosa with moderate chronic active inflammation. - Positive for H pylori. C. Esophagus, lower, biopsy: Squamous epithelium within normal limits; no inflammation seen. D. Esophagus, middle, biopsy: Squamous epithelium within normal limits; no inflammation seen. 06/26/23 Here for post-EGD follow up. Resolution of abd bloating and postprandial nausea since dilation. Reviewed H pylori + findings and pt interested in tx. Pt also brought report of most recent colo in 2020: Dr Harris ([facility]): NORMAL. 08/25/23: Here for follow up after quad therapy. Breath testing pending. Otherwise no GI complaints. Tolerated therapy well and completed a month ago. [facility] Medical History Encounter for physical examination Pure hypercholesterolemia Right shoulder pain Constipation by delayed colonic transit Infertility Asthma Surgical History Hx of colonoscopy History of esophagogastroduodenoscopy (EGD) H/O cervical polypectomy Hx of tonsillectomy Family History Father Diabetes Mother Hypertension Family/Other Breast cancer Social History Housing: House Alcohol intake: current Alcohol intake frequency: holidays/special occasions only Patient Tobacco Use Status: Never used Tobacco e-Cigarette/Vaping Use: Never Used Second Hand Smoke Exposure: No service: No Current occupational status: employed Current occupational exposures/hazards: No Cognitive needs: No Hearing needs: No Vision needs: No Female Reproductive History Menstrual Age of Menarche: 15 Review of Systems Const All systems reviewed & are unremarkable except as noted in HPI and below Physical Exam Vital Signs: Last Vital Signs Pulse 81 08/25/23 13:55 BP 105/64 08/25/23 13:55 BMI result Body Mass Index 24.2 No apparent distress Nonicteric Abdomen soft, nondistended Alert and oriented x3, normal gait Assessment & Plan Assessment & Plan (1) Helicobacter pylori (H. pylori): Code(s): A04.8 - Other specified bacterial intestinal infections Category: Medical (2) Duodenitis: Code(s): K29.80 - Duodenitis without bleeding Category: Medical (3) Abdominal pain: Code(s): R10.9 - Unspecified abdominal pain Category: Medical Plan Has completed quad therapy as prescribed. Per her report no missed/skipped doses. Abd pain has resolved. No GI complaints at present. Plan: - Breath test today - If negative can follow up PRN. - If positive will review retreatment with quad therapy vs second line. Colorectal ca screening: Normal colo in 2020. Repeat colonoscopy will be due in 2030 UPDATE: Breath test is NEGATIVE i.e H Pylori successfully eradicated. Medications: Discontinued omeprazole Discontinued Reason: Patient Completed Course 20 mg PO DAILY 90 caps 0RF K29.80 - Duodenitis without bleeding metronidazole Discontinued Reason: Patient Completed Course 250 mg PO QID 14 days 56 tabs 0RF omeprazole Discontinued Reason: Patient no longer taking 20 mg PO BID 14 days 28 caps 0RF bismuth subsalicylate Discontinued Reason: Patient Completed Course 2 tabs PO QID 14 days 112 tabs 0RF tetracycline Discontinued Reason: Patient Completed Course 500 mg PO QID 14 days 56 caps 0RF Coding Level of Care Code Est Pt Level 3 (42427) Diagnoses Helicobacter pylori (H. pylori) A04.8 Duodenitis K29.80 Abdominal pain R10.9
== END 2023-08-25 15:09 | disposition home or self-care (01) ==
PROVIDERS: PCP Internal Medicine; Visit Provider Internal Medicine
DX: A04.8 Other specified bacterial intestinal infections (principal); K29.80 Duodenitis without bleeding; R10.9 Unspecified abdominal pain
CPT/HCPCS: 99213

== ENCOUNTER → 2023-08-25 13:53 | Outpatient (BNVA) | payer OTHER, SELFPAY | PROVIDERS: PCP Internal Medicine; Visit Provider Internal Medicine ==

== ENCOUNTER 2023-08-28 16:03 | Outpatient (AMB) | payer OTHER, SELFPAY ==
[2023-08-28 16:06] VITALS: BP 112/70; BMI 24.4
--- NOTE | 2023-08-28 16:06 | MHC.PC.OV ---
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 Required: No Accompanied by: Self / Same As Patient Allergies No Known Allergies Allergy (Verified 08/28/23 16:19) Medication List - Last Reconciled 08/28/23 by Margarita Pedro MD No Known Home Meds Tobacco use date assessed: 08/28/23 Dental Screening Dental Screen Date: 08/28/23 Did you have a dental visit in the last 12 months?: Yes Did you have a dental problem in the last 6 months where you did not have access to dental care?: No Was dental information given to patient?: Patient has dentist HPI HPI Comments History of Present Illness Details This is a 48-year-old female that comes for her physical exam. Last mammogram was 2022 and was normal. Last Pap smear was 2022. Denies any chest pain or shortness on breath. Doing well. [facility] Medical History Encounter for physical examination Pure hypercholesterolemia Right shoulder pain Constipation by delayed colonic transit Infertility Asthma Surgical History Hx of colonoscopy History of esophagogastroduodenoscopy (EGD) H/O cervical polypectomy Hx of tonsillectomy Family History Father Diabetes Mother Hypertension Family/Other Breast cancer Social History Housing: House Alcohol intake: current Alcohol intake frequency: holidays/special occasions only Patient Tobacco Use Status: Never used Tobacco e-Cigarette/Vaping Use: Never Used Second Hand Smoke Exposure: No service: No Current occupational status: employed Current occupational exposures/hazards: No Cognitive needs: No Hearing needs: No Vision needs: No Female Reproductive History Menstrual Age of Menarche: 15 Questionnaire PHQ-9 Over the last 2 weeks, how often have you been bothered by any of the following problems? 1. Little interest or pleasure in doing things: not at all 2. Feeling down, depressed, or hopeless: not at all 3. Trouble falling or staying asleep, or sleeping too much: not at all 4. Feeling tired or having little energy: not at all 5. Poor appetite or overeating: not at all 6. Feeling bad about yourself - or that you are a failure or have let yourself or your family down: not at all 7. Trouble concentrating on things, such as reading the newspaper or watching television: not at all 8. Moving or speaking so slowly that other people could have noticed. Or the opposite - being so fidgety or restless that you have been moving around a lot more than usual: not at all 9. Thoughts that you would be better off or of hurting yourself in some way: not at all Total score: 0 Depression Screening Interpretation: Negative Depression Screening Done: Yes 41360 - PHQ-9 Billing: Yes Source: Developed by Drs. James Garcia, Nyasia Root, Eloy Degroot and colleagues, with an educational sarahi from [employer]. Thrive Questionnaire Date Thrive assessed: 08/28/23 I am a: Patient What is your living situation today?: I have a steady place to live Within the past 12 months, did the food you bought not last and you didn't have the money to get more?: Never true Within the past 12 months, did you worry whether your food would run out before you got money to buy more?: Never true Do you have trouble paying for medicines?: No Do you have trouble getting transportation to medical appointments?: No Do you have trouble paying your heating and electricity bill?: No Do you have trouble taking care of your child, family member or friend?: No Do you have trouble with day-to-day activities such as bathing, preparing meals, shopping, managing finances, etc.?: No Are you currently unemployed and looking for a job?: No Are you interested in more education?: No Please select the resources that you would like help with: None Currently or been in a relationship where the following occur: no concerns reported THRIVE Score: 0 AUDIT C Alcohol Use Questionnaire (AUDIT-C) 1. How often do you have a drink containing alcohol?: Monthly or less 2. How many drinks containing alcohol do you have on a typical day when you are drinking?: 1 or 2 3. How often do you have six or more drinks on one occasion?: Never Total Score: 1 Score Reviewed/Action Taken: No HONEY-7 AMB Questionnaire HONEY-7 Date HONEY - 7 assessed: 08/28/23 Feeling nervous, anxious, or on edge: 0 = Not at all Not being able to stop or control worryin = Not at all Worrying too much about different things: 0 = Not at all Trouble relaxin = Not at all Being so restless that it is hard to sit still: 0 = Not at all Becoming easily annoyed or irritable: 0 = Not at all Feeling afraid as if something awful might happen: 0 = Not at all Total HONEY-7 score (0-4 normal; 5-9 mild; 10-14 moderate; 15-21 severe): 0 Source: Developed by Drs. James Garcia, Nyasia Root, Eloy Degroot and colleagues, with an educational sarahi from [employer]. HONEY-7 Assessment Billing HONEY-7 Assessment Tool: HONEY-7 Assessment 33229 Review of Systems Const All systems reviewed & are unremarkable except as noted in HPI and below Eyes Reports no additional complaints, Denies change in vision and Denies other visual disturbances Card Denies chest pain at rest, Denies chest pain with activity, Denies edema, Denies irregular heart rhythm, Denies claudication, Denies dyspnea, Denies dyspnea on exertion, Denies orthopnea, Denies paroxysmal nocturnal dyspnea and Denies slow heart rate Resp Denies cough, Denies dyspnea and Denies dyspnea on exertion GI Denies abdominal pain, Denies change in bowel habits, Denies excessive flatus, Denies nausea and Denies vomiting Denies urinary incontinence, Denies urinary hesitancy and Denies urinary urgency Physical exam (Primary Care) BMI result Body Mass Index 24.4 Tobacco/Smoking Status: Tobacco use Status Tobacco use date assessed 08/28/23 08/28/23 16:11 Patient Tobacco Use Status Never used Tobacco 08/28/23 16:11 e-Cigarette/Vaping Use Never Used 08/28/23 16:11 PHQ-9: PHQ-9 Score PHQ-9: Total score 0 08/28/23 16:12 Depression Screening Interpretation: Negative Thrive Assessment: Date of Thrive Assessment Date Thrive assessed 08/28/23 08/28/23 16:12 Currently or been in a relationship where the following occur: no concerns reported Const Orientation/consciousness: patient oriented x3 HENMT Head: Yes normal to inspection, Yes normocephalic and Yes atraumatic Ears: external ears normal Eyes General: appearance normal, both eyes and all related structures Eyelids: Yes eyelids normal Conjunctivae: conjunctivae normal Neck Neck: Yes normal visual inspection and Yes supple Resp Effort & Inspection: normal respiratory effort Auscultation: clear to auscultation bilaterally Cardio Jugular venous distension: no JVD Rate: regular rate Rhythm: regular rhythm Heart sounds: S1 normal heart sound present and S2 normal heart sound present GI Inspection: Yes normal to inspection Palpation (GI): Soft to palpation and nontender Auscultation: normal bowel sounds Skin General skin exam: no rashes or lesions noted Neuro General: patient oriented x3 and no focal motor deficits Extrem General: Yes full ROM Psych Appearance: grossly normal Assessment and Plan Assessment & Plan (1) Encounter for physical examination: Code(s): Z00.00 - Encounter for general adult medical examination without abnormal findings Plan: Repeat in a year. Orders: Orders Lipid Panel 3 Months E78.5 - Hyperlipidemia, unspecified, Z00.00 - Encounter for general adult medical examination without abnormal findings Comprehensive [place]. Panel Fast 3 Months Z00.00 - Encounter for general adult medical examination without abnormal findings Coding Level of Care Code Est Pt Prev Care 40-64y(24721) Diagnoses Encounter for physical examination Z00.00 Additional Codes HONEY-7 Assessment Billing - HONEY-7 Assessment Tool: HONEY-7 Assessment 77808 ([id number]) Time Spent (min) 31
== END 2023-08-28 16:39 | disposition home or self-care (01) ==
PROVIDERS: PCP Internal Medicine; Visit Provider Internal Medicine
DX: Z00.00 Encounter for general adult medical examination without abnormal findings (principal)
CPT/HCPCS: 99396

== ENCOUNTER 2024-01-05 10:01 | Outpatient (REF) | payer OTHER, SELFPAY ==
[2024-01-05 12:27] LABS: Alanine Aminotransferase 13 U/L (0-31); Albumin Level 4.3 g/dL (3.5-5.0); Alkaline Phosphatase 82 U/L (39-117); Anion Gap 9 (12-20); Aspartate Amino Transferase 14 U/L (5-31); Bilirubin Total 0.9 mg/dL (0.0-1.0); Blood Urea Nitrogen 14 mg/dL (9-16); Calcium 9.4 mg/dL (8.4-10.2); Carbon Dioxide 29 mmol/L (22-29); Chloride 105 mmol/L (96-108); Cholesterol 178 mg/dL (<200); Estimated Glomerular Filt Rate > 60; Glucose Fasting 93 mg/dL (60-99); HDL Cholesterol 64 mg/dL (>40); LDL Cholesterol Calculated 107 mg/dL (<100); Potassium 3.6 mmol/L (3.3-5.1); Sodium 139 mmol/L (135-145); Total Protein 7.6 g/dL (6.5-8.0); Triglycerides 38 mg/dL (<150)
== END 2024-01-05 10:02 | disposition home or self-care (01) ==
LOC: HO.LAB 10:01
PROVIDERS: PCP Internal Medicine; Visit Provider Internal Medicine
DX: Z00.00 Encounter for general adult medical examination without abnormal findings (principal); E78.5 Hyperlipidemia, unspecified
CPT/HCPCS: 36415; 80053; 80061